=== PATIENT | male | born 1980 | race Caucasian/White ===

== ENCOUNTER 2017-02-01 16:41 | Emergency (ER) | payer MEDICAID ==
--- NOTE | 2017-02-01 16:48 | EDPHY ---
HPI/HX/ROS/PE/MDM Narrative: CHIEF COMPLAINT: Right-sided flank pain HISTORY OF PRESENT ILLNESS: The patient is a 36 y/o male arriving via EMS complaining of right-sided flank pain with onset 2-3 hours ago. The pain starts in his right lower back and flank and then radiates down into his groin and right testicle. Denies swelling of the testicle or left-sided flank pain. Denies history of kidney stones or coronary disease. Associated with nausea, no vomiting. No trauma. No PMH of hypertension, denies hematuria, fever, chills, chest pain, shortness of breath, palpitations, vomiting, diarrhea, headache, lightheadedness. REVIEW OF SYSTEMS: Aside from elements discussed in the HPI, a comprehensive 10-point review of systems was reviewed and is negative. PAST MEDICAL HISTORY: Denies SOCIAL HISTORY: Lives in [place] Unemployed Nonsmoker VITAL SIGNS: Reviewed by me GENERAL: Diaphoretic, very uncomfortable. Well-developed, well-nourished. HEENT: Atraumatic. Eyes: No icterus, no injection. Mouth: moist mucous membranes. No erythema or lesions. Neck: supple with no adenopathy. LUNGS: Clear to auscultation bilaterally, no wheezes, rhonchi or rales. CARDIAC: Regular rate and rhythm, no rubs, murmurs or gallops. ABDOMEN: Soft, nontender, nondistended, bowel sounds normal. BACK: Indicates pain in right flank but no palpable tenderness. No CVA tenderness. GROIN: Indicates pain in right testicle but no palpable tenderness or swelling. EXTREMITIES: No trauma. No edema. Range of motion is normal throughout. NEURO: Alert and oriented, grossly nonfocal. SKIN: Warm and dry, no rash. PSYCHIATRIC: Normal mentation, no agitation. Portions of this note were transcribed by a medical center director. I personally performed a history, physical exam, medical decision making, and confirmed accuracy of information the transcribed note. ED Course: The patient is a 36 y/o male arriving via EMS for pain in his right flank that radiates down to his right groin. On exam there is no tenderness to palpation. IV placed, fluids, pain meds, antiemetics. CT of Abd pelvis ordered. 1753: Spoke with radiologist. The patient has a 4-5mm kidney stone in his right UVJ with hydronephrosis. Reassessed, pain improved but still moderate in nature. Given toradol, flomax, additional fluid. 1841: 12-LEAD EKG: Please see the full report in [facility]. My interpretation: Normal sinus rhythm with a rate of 91. Reassessed patient again. Feeling better. Comfortable being discharged to home. Return precautions discussed; patient is comfortable with this plan. MDM: Differential diagnosis of the patient's flank pain was considered including but not limited to musculoskeletal causes, kidney stone, pyelonephritis, shingles, and intra-abdominal causes such as diverticulitis and appendicitis. - Data Points Imaging Results: Impression: 1. A 4 mm distal right ureteral calculus, at the ureterovesical junction, results in mild hydronephrosis and hydroureter. 2. Right nephrolithiasis. 3. Otherwise, normal noncontrast CT of the abdomen and pelvis. Findings discussed with Emergency Department physician, Natalya Sarmiento M.D., at February 01, 2017 at 1748. Imaging: Discussed imaging studies w/ banquet server on call Radiologist Laboratory Results: Laboratory Results 02/01/17 16:53 02/01/17 16:53 Medications Given: Discontinued Medications Hydromorphone HCl (Dilaudid) 1 mg IVP EDNOW ONE Stop: 02/01/17 17:19 Last Admin: 02/01/17 17:26 Dose: 1 mg Sodium Chloride (Ns) 1,000 mls @ 0 mls/hr IV EDNOW ONE; Wide Open PRN Reason: Protocol Stop: 02/01/17 17:19 Last Admin: 02/01/17 17:25 Dose: 1,000 mls Ketorolac Tromethamine (Toradol) 30 mg IVP EDNOW ONE Stop: 02/01/17 17:19 Last Admin: 02/01/17 17:56 Dose: 30 mg Ondansetron HCl (Zofran) 4 mg IVP EDNOW ONE Stop: 02/01/17 17:19 Last Admin: 02/01/17 17:26 Dose: 4 mg Ondansetron HCl (Zofran Odt) 4 mg PO EDNOW ONE Stop: 02/01/17 20:30 Last Admin: 02/01/17 20:30 Dose: 4 mg Oxycodone/Acetaminophen (Percocet 5/325) 1 tab PO EDNOW ONE Stop: 02/01/17 20:30 Last Admin: 02/01/17 20:30 Dose: 1 tab Tamsulosin HCl (Flomax) 0.4 mg PO EDNOW ONE Stop: 02/01/17 17:54 Last Admin: 02/01/17 18:52 Dose: 0.4 mg General Time Seen by Provider: 02/01/17 16:43 Initial Vital Signs: Initial Vital Signs Temperature (C) 36.7 C 02/01/17 16:49 Heart Rate 74 02/01/17 16:49 Respiratory Rate 18 02/01/17 16:49 Blood Pressure 134/104 H 02/01/17 16:49 O2 Sat (%) 92 02/01/17 16:49 O2 Delivery Mode Room Air Allergies/Adverse Reactions: No Known Allergies Allergy (Unverified 02/01/17 17:22) Home Medications: Medication Instructions Recorded Ondansetron Odt [Zofran Odt 4 mg 4 mg PO Q6 PRN #8 tab 02/01/17 (RX)] Tamsulosin HCl [Flomax] 0.4 mg PO DAILY #7 cap 02/01/17 oxyCODONE/APAP 5/325 [Percocet 1 tab PO QID PRN #20 tab 02/01/17 5/325 (*)] Departure - Departure Disposition: Home, Routine, Self-Care Clinical Impression: Kidney stone on right side, Renal colic on right side Condition: Good Instructions: Kidney Stones (ED) Additional Instructions: Take oxycodone as needed for severe pain. Use Zofran as needed for nausea. Take ibuprofen 600 mg every 6-8 hours as needed for moderate pain. This will also help with inflammation. Take Flomax as directed. Followup with urology as directed below. Strain urine. Return to the emergency department if you have worsening pain, fevers, persistent vomiting, or other concerns. Referrals: Angelito Bhatt MD [Medical Doctor] - As per Instructions Prescriptions: Ondansetron Odt [Zofran Odt 4 mg (RX)] 4 mg PO Q6 PRN #8 tab PRN Reason: Nausea oxyCODONE/APAP 5/325 [Percocet 5/325 (*)] 1 tab PO QID PRN #20 tab PRN Reason: Pain Tamsulosin HCl [Flomax] 0.4 mg PO DAILY #7 cap Report Scribed for: Natalya Sarmiento Report Scribed by: Sonya Jiang Date of Report: 02/01/17 Time of Report: 16:48
[2017-02-01] MEDS ORDERED: HYDROmorphONE/DILAUDID 1 MG/ML INJ IVP ONE (17:18)
[2017-02-01] MEDS ORDERED: NS 1,000 ML IV ONE (17:18)
[2017-02-01] MEDS ORDERED: ONDANSETRON 4 MG/2 ML VIAL IVP ONE (17:18)
[2017-02-01] MEDS ORDERED: KETOROLAC 30 MG/1 ML SDV IVP ONE (17:18)
[2017-02-01 17:23] LABS: % IMMATURE GRANULYOCYTES 0.6 % (0.0-1.1); ABSOLUTE IMMATURE GRANULOCYTES 0.08 10^3/uL (0.00-0.10); ADD DIFF? NO; ADD MORPH? NO; ADD SCAN? YES; ATYPICAL LYMPHOCYTE FLAG 0 (0-99); FRAGMENT RBC FLAG 0 (0-99); HEMATOCRIT 42.8 % (40.0-51.0); LEFT SHIFT FLG 0 (0-99); LIPEMIA HEMOLYSIS FLAG 90 (0-99); MEAN CELL HEMOGLOBIN 30.7 pg (27.9-34.1); MEAN CELL VOLUME 87.5 fL (81.5-99.8); PLATELET COUNT 241 10^3/uL (150-400); RED BLOOD CELL COUNT 4.89 10^6/uL (4.40-6.38); RED CELL DISTRIBUTION WIDTH 12.5 % (11.5-15.2)
[2017-02-01 17:38] LABS: PLATELET CLUMPS FLAG 300 (0-99)
[2017-02-01 17:40] LABS: ANION GAP 14 mEq/L (8-16); CALCIUM 9.1 mg/dL (8.5-10.4); CARBON DIOXIDE 21 mEq/l (22-31); CHLORIDE 105 mEq/L (97-110); CREATININE 0.9 mg/dL (0.7-1.3); GLOMERULAR FILTRATION RATE > 60; GLUCOSE 120 mg/dL (70-100); POTASSIUM 3.7 mEq/L (3.5-5.2); SODIUM 140 mEq/L (134-144)
[2017-02-01 17:48] LABS: SCAN NEGATIVE
[2017-02-01] MEDS ORDERED: TAMSULOSIN HCL 0.4 MG CAP PO ONE (17:53)
[2017-02-01 18:08] VITALS: RESP 16
--- NOTE | 2017-02-01 18:45 | CPEKG ---
Heart Rate: 91 RR Interval: 659 P-R Interval: 148 QRSD Interval: 102 QT Interval: 384 QTC Interval: 473 P Woodson: 38 QRS Woodson: 48 T Wave Woodson: 7 EKG Severity - BORDERLINE ECG - EKG Impression: SINUS RHYTHM EKG Impression: BORDERLINE PROLONGED QT INTERVAL Electronically Signed By: Natalya Sarmiento 01-Feb-2017 21:15:46
[2017-02-01 19:41] LABS: COLOR YELLOW; LEUKOCYTE ESTERASE,URINE NEGATIVE (NEGATIVE); NITRITE,URINE NEGATIVE (NEGATIVE)
[2017-02-01 19:54] LABS: MUCUS 2+ /lpf (NONE-1+); RBC,URINE 50-182 /hpf (0-3)
[2017-02-01] MEDS ORDERED: ONDANSETRON DISINTEGRATING 4 MG TAB ONE (20:22)
[2017-02-01] MEDS ORDERED: OXYCODONE/APAP 5/325 TAB ONE (20:22)
[2017-02-01] MEDS ORDERED: OXYCODONE/APAP 5/325 TAB PO ONE (20:29)
[2017-02-01] MEDS ORDERED: ONDANSETRON DISINTEGRATING 4 MG TAB PO ONE (20:29)
[2017-02-01 20:31] VITALS: BP 135/79; PULSE 78; TEMP 98.2; O2SAT 96
== END 2017-02-01 20:32 | disposition home or self-care (01) ==
DX: N20.0 Calculus of kidney (principal); E86.9 Volume depletion, unspecified
CPT/HCPCS: 96374; J1170; J1885; J2405